=== PATIENT | female | born 2000 | race Caucasian/White ===

== ENCOUNTER 2025-03-13 14:00 | Emergency (ER) | payer OTHER, SELFPAY ==
[2025-03-13 14:01] VITALS: BP 111/75; PULSE 81; RESP 14; TEMP 36.7; O2SAT 95
--- NOTE | 2025-03-13 14:18 | W.ED.GENAD ---
Discharge Plan Disposition Patient Disposition: Home Discharge Details Clinical Impression: Hand laceration Primary Care Provider: Nicole,Local ED Provider: Amandeep Archibald Home Meds and New Rx's Prescriptions: No Action sertraline [Zoloft] 100 mg tablet 150 mg PO DAILY bupropion HCl 100 mg tablet 100 mg PO DAILY Discharge Instructions Instructions: Taking care of cuts, scrapes, and puncture wounds Additional Instructions: Keep clean with soap and water. You can take a shower and wash your hands as normal The Steri-Strip might come off in a few days and you can reapply a new one, this is just a stickier Band-Aid Your function is normal in your hands so there is no evidence of a tendon injury and no need for tetanus shot today. Take Motrin and Tylenol as needed for pain, apply ice pack to help with throbbing or pain HPI General Date/Time Provider Initiated Documentation: 03/13/25 14:05. Limitations to Documentation: no limitations. Information obtained by: patient. HPI Narrative: 24-year-old female with past medical history of anxiety presents for evaluation of left hand laceration. Patient reports that she was trying to get the pit out of an avocado when the tip of the knife entered the palm of her hand. She reports pain but no numbness tingling or difficulty moving her hands. She did not take any medications or wash her hand prior to arrival. She does report that she received a tetanus shot within the last year. Related Data Home Medications ?Medication ?Instructions ?Recorded ?Confirmed bupropion HCl 100 mg tablet 100 mg PO DAILY 03/13/25 03/13/25 sertraline 100 mg tablet (Zoloft) 150 mg PO DAILY 03/13/25 03/13/25 Allergies Allergy/AdvReac Type Severity Reaction Status Date / Time ciprofloxacin AdvReac Intermediate Nausea Verified 03/13/25 14:06 General Stated Complaint: Laceration SERAFIN: 4 Exam Narrative Exam Narrative: Review of Systems: All systems reviewed & are unremarkable except as noted in HPI and below Well-developed, no acute distress NCAT RRR Left hand palmar surface with a 1 cm laceration on the palm, below the index finger, the area is no active bleeding, wound does not appear very deep and does not have any protrusion of soft tissue, sensation is intact, the range of motion in the hand and strength are intact 5 out of 5 in all distributions Course Vital Signs Vital signs: Vital Signs Temperature 36.7 C 03/13/25 14:01 Pulse 81 03/13/25 14:01 Respiratory Rate 14 03/13/25 14:01 Blood Pressure 111/75 03/13/25 14:01 Pulse Oximetry 95 03/13/25 14:01 Temperature 36.7 C 03/13/25 14:01 Temperature Source Oral 03/13/25 14:01 Pulse 81 03/13/25 14:01 Respiratory Rate 14 03/13/25 14:01 Blood Pressure 111/75 03/13/25 14:01 Blood Pressure Position Sitting 03/13/25 14:01 Pulse Oximetry 95 03/13/25 14:01 Oxygen Delivery Method Room Air 03/13/25 14:01 Oxygen Flow Rate 0 03/13/25 14:01 Medical Decision Making Emergent evaluation of hand injury. Initial differential includes laceration, soft tissue injury, no evidence or concern for fracture or wound care guidance provided to the patient. Return precautions advised. Follow-up as needed. Injury to deep structures like tendons. Hand function is completely intact. Tetanus is up-to-date. Wound covered and closed with a Steri-Strip. Wound care guidance provided. Return precautions discussed. Discharged in good condition. [facility] All Active Problems (Updated 03/13/25 @ 14:18 by Amandeep Archibald MD) Hand laceration (Acute) Social History Smoking/Tobacco Use Status: Never Smoking risk assessment performed?: Yes Alcohol Intake: current Alcohol Intake frequency: a few times a week Alcohol type: wine and hard liquor Drug use: Never Substance use type: does not use Do you feel safe at home: Yes Do you feel safe in your relationship?: Yes PAWSS Have you Been Recently Intoxicated or Drunk Within the Last 30 days?: No Have you Ever Experienced Previous Episodes of Alcohol Withdrawal?: No Have you ever Experienced Withdrawal Seizures?: No Have you ever Experienced Delirium Tremens(DT)s?: No Have you ever undergone Alcohol Rehabilitation Treatment (i.e, inpt ot outpatient treatment programs)?: No Have you ever Experienced Blackouts?: No Have you ever Combined Alcohol with other Downers within the last 90 days?: No Have you ever Combined Alcohol with any other Substance of Abuse during the last 90 days?: No Positive Blood Alcohol level on Presentation? [PCS.BAL]: No Evidence of Increased Autonomic Activity (i.e. HR>120, tremor, sweating, agitation, nausea)?: No Result: 0
== END 2025-03-13 14:48 | disposition home or self-care (01) ==
LOC: ER 14:30
PROVIDERS: Emergency Provider Emergency Medicine
DX: S61.412A Laceration without foreign body of left hand, initial encounter (principal); W26.0XXA Contact with knife, initial encounter; Y93.G3 Activity, cooking and baking; Y92.89 Other specified places as the place of occurrence of the external cause
CPT/HCPCS: 99283